=== PATIENT | female | born 1955 | race Caucasian/White ===

== ENCOUNTER → 2017-01-03 13:31 | Outpatient (CLI) | payer OTHER ==
[2016-06-13 09:47] VITALS: BMI 27.3
[~2017-01-03 13:31] MED LIST: ASPIRIN81 MG PO; COREG12.5 MG PO; COREG6.25 MG PO; GLIPIZIDE10 MG PO; GLUCOPHAGE1000 MG PO; GLUCOPHAGE500 MG PO; K-TAB10 MEQ PO; LASIX40 MG PO; LIPITOR20 MG PO; LISINOPRIL10 MG PO; LOPRESSOR25 MG PO; NORVASC10 MG PO; PLAVIX75 MG PO; PRINIVIL20 MG PO; TRADJENTA5 MG PO; XANAX0.5 MG PO; ZESTORETIC 20-1 EACH PO
== END | disposition home or self-care (01) ==
LOC: D.LAB 11:15 → D.US 14:00
DX: R10.13 Epigastric pain (principal); D72.820 Lymphocytosis (symptomatic); R19.7 Diarrhea, unspecified; R14.0 Abdominal distension (gaseous)

== ENCOUNTER → 2017-03-16 13:37 | Outpatient (CLI) | payer OTHER ==
[2016-06-13 09:47] VITALS: BMI 27.3
== END | disposition home or self-care (01) ==
LOC: D.US 13:00
DX: E11.22 Type 2 diabetes mellitus with diabetic chronic kidney disease (principal); I10 Essential (primary) hypertension; R80.9 Proteinuria, unspecified

== ENCOUNTER 2018-03-29 11:28 | Outpatient (CLI) | payer OTHER ==
[~2018-03-29] VITALS: Ht 147.3 cm; Wt 55.9 kg
[2018-03-29 12:55] VITALS: BP 145/63; Ht 147.3 cm; Wt 55.9 kg
== END 2018-03-29 16:30 | disposition home or self-care (01) ==
LOC: D.OPS 11:28
DX: D64.9 Anemia, unspecified (principal); E11.9 Type 2 diabetes mellitus without complications; R53.83 Other fatigue; Z01.812 Encounter for preprocedural laboratory examination

== ENCOUNTER → 2018-04-09 11:25 | Outpatient (CLI) | payer OTHER ==
[2018-03-29 12:55] VITALS: BMI 25.7
== END | disposition home or self-care (01) ==
LOC: D.CT 11:25
DX: D59.1 Other autoimmune hemolytic anemias (principal); R53.83 Other fatigue